=== PATIENT | male | born 1990 | race Caucasian/White ===

== ENCOUNTER 2020-11-17 18:01 | Emergency (ER) | payer BC ==
[~2020-11-17] VITALS: Ht 177.8 cm; Wt 86.2 kg
--- NOTE | 2020-11-17 18:02 | NUR ---
PT BROUGHT TO BED 11 VIA [facility] MALDONADO
[2020-11-17 18:06] VITALS: BP 102/70
--- NOTE | 2020-11-17 18:16 | NUR ---
30 yo m biba c/o weakness x few minutes. pt admits to smoking marijuana 1 hour prior to symptom onset, but says that he smokes regulary. denies any pain. Rt Forearm IV 18g, inserted by ems, intact, patent, infusing NS bolus. pmh: none meds: none nka
[2020-11-17] MEDS ORDERED: NACL 0.9% 2,600 ML IV ONE (19:05)
--- NOTE | 2020-11-17 19:17 | NUR ---
LAB AT BEDSIDE
--- NOTE | 2020-11-17 19:17 | NUR ---
RT AT BEDSIDE
--- NOTE | 2020-11-17 19:26 | NUR ---
REPORT GIVEN TO MONIQUE FONTAINE FOR CONTINUITY OF CARE
[2020-11-17 19:29] LABS: BASOPHILS # (AUTO) 0.1 K/uL (0.00-0.22); BASOPHILS % (AUTO) 0.5 % (0.0-2.0); EOSINOPHILS # (AUTO) 0.1 K/uL (0-0.4); EOSINOPHILS % (AUTO) 0.6 % (0.0-4.0); HEMATOCRIT 44.4 % (36-52); HEMOGLOBIN 14.9 g/dL (12.0-18.0); LYMPHOCYTES # (AUTO) 1.7 K/uL (2.0-11.5); LYMPHOCYTES % (AUTO) 10.4 % (20.5-51.1); MEAN CORPUSCULAR HEMOGLOBIN 32 pg (27-31); MEAN CORPUSCULAR HGB CONC 34 g/dL (33-37); MEAN CORPUSCULAR VOLUME 95.5 fL (80-94); MONOCYTES # (AUTO) 1.1 K/uL (0.8-1.0); MONOCYTES % (AUTO) 6.5 % (1.7-9.3); NEUTROPHILS # (AUTO) 13.5 K/uL (1.8-7.7); PLATELET COUNT (AUTO) 270 K/uL (140-450); RED BLOOD CELL COUNT(AUTO) 4.65 MIL/uL (4.20-6.10); RED CELL DISTRIBUTION WIDTH 12.5 % (11.6-13.7); WHITE BLOOD COUNT (AUTO) 16.4 K/uL (4.8-10.8)
--- NOTE | 2020-11-17 19:29 | NUR ---
REPORT RECEIVED FROM LUANN FONTAINE, FOR CONTINUITY OF CARE AT THIS TIME
[2020-11-17 19:47] LABS: PROTHROMBIN TIME 10.3 secs (10.8-13.4)
[2020-11-17 19:48] LABS: ALBUMIN 3.8 g/dL (3.4-5.0); ANION GAP 9.4 (8-16); CREATININE 1.3 mg/dL (0.6-1.3); POTASSIUM 3.4 mmol/L (3.5-5.1); TOTAL BILIRUBIN 0.4 mg/dL (0.0-1.0)
--- NOTE | 2020-11-17 19:48 | NUR ---
unable to draw abg. two attempts were made. dr light canceled abg.rn aware. patient is sating at 100% on room air. no sob is noted at this time
--- NOTE | 2020-11-17 20:06 | NUR ---
PTS SISTER, CAMILLA [phone]
[2020-11-17 20:37] LABS: APPEARANCE,URINE CLEAR (CLEAR); BILIRUBIN,URINE NEGATIVE (NEGATIVE); BLOOD, URINE NEGATIVE (NEGATIVE); COLOR,URINE YELLOW (YELLOW); LEUKOCYTE ESTERASE ,URINE NEGATIVE (NEGATIVE); NITRITE, URINE NEGATIVE (NEGATIVE); UGLUCOSE TRACE (NEGATIVE)
[2020-11-17] MEDS ORDERED: LEVOFLOXACIN 500 MG/D5W PREMIX 100 ML IV ONE (21:00)
[2020-11-17] MEDS ORDERED: VANCOMYCIN 1,000 MG in DEXTROSE 5% 250 ML IV ONE (21:00)
[2020-11-17] MEDS ORDERED: VANCOMYCIN 1,000 MG VIAL ONE (22:10)
[2020-11-18 00:20] VITALS: BP 103/68
--- NOTE | 2020-11-18 00:20 | NUR ---
Patient discharged with v/s stable. Written and verbal after care instructions given and explained. Patient verbalized understanding. Ambulatory with steady gait. All questions addressed prior to discharge. Advised to follow up with PMD.
--- NOTE | 2020-11-18 00:30 | NUR ---
Note dee in ED - 11/18/20 at 0034 by [email or web address] Patient discharged with v/s stable. Written and verbal after care instructions given and explained. Patient verbalized understanding. Ambulatory with steady gait. All questions addressed prior to discharge. Advised to follow up with PMD.
== END 2020-11-18 00:20 | disposition home or self-care (01) ==
LOC: MED 18:01
DX: E86.0 Dehydration (principal); Z20.822 Contact with and (suspected) exposure to COVID-19; I10 Essential (primary) hypertension; F17.200 Nicotine dependence, unspecified, uncomplicated
CPT/HCPCS: 36415; 71045; 80053; 81003; 83605; 84484; 85025; 85610; 85730; 87040; 87086; 87426; 93005; 96361; 96365; 96367; 99285; J1956; J3370; J7030; Q0092